=== PATIENT | male | born 1970 | race American Indian/Alaskan Native ===

== ENCOUNTER 2020-11-18 12:11 | Emergency (ER) | payer MEDICARE ==
[2020-11-18] MEDS ORDERED: SODIUM CHLORIDE 0.9% 1000 ML 1,000 ML IV ONE (14:15)
--- NOTE | 2020-11-18 14:16 | Emergency Department Report ---
<KAREN ESTRADA - Last Filed: 11/18/20 14:24> ED General Adult HPI - General Chief complaint: Seizure Stated complaint: SEIZURE Time Seen by Provider: 11/18/20 14:15 Source: patient, EMS Mode of arrival: Wheelchair Limitations: No Limitations - History of Present Illness Initial comments: Patient is a 50-year-old male with past medical history of HIV noncompliant with antiviral medication x1 month who presents to emergency department after experiencing a syncopal event versus generalized seizure prior to arrival emergency department. Patient states he was helping his friend move, abruptly lost consciousness and fell backwards, striking his head against the wall as he landed. Patient denies headache, denies tongue laceration, denies incontinence of feces or urine. Patient denies history of seizures, denies drug abuse. Patient states he does drink approximately 1 sixpack of alcohol per day, denies feeling like he needs a drink or withdrawal symptoms. Patient presents with fever, unaware fever, denies cough, denies sore throat, denies shortness of breath, denies rash, denies abdominal pain, denies nausea vomiting diarrhea, denies dysuria. - Related Data Previous Rx's Medication Instructions Recorded Last Taken Type Azithromycin [Zithromax TAB] 250 mg PO QDAY #4 tablet 11/18/20 Unknown Rx Multivitamin with Folic Acid [Cvs 400 mcg PO DAILY #30 tablet 11/18/20 Unknown Rx One Daily Essential Tablet] Thiamine [Vitamin B-1] 100 mg PO QDAY #30 tablet 11/18/20 Unknown Rx levETIRAcetam [Keppra TAB] 500 mg PO BID #60 tablet 11/18/20 Unknown Rx Allergies Allergy/AdvReac Type Severity Reaction Status Date / Time No Known Allergies Allergy Unverified 11/18/20 13:00 ED Review of Systems Comment: All other systems reviewed and negative ED Past Medical Hx - Past Medical History Previous Medical History?: Yes Additional medical history: HIV - Surgical History Past Surgical History?: No - Medications Home Medications: Home Medications Medication Instructions Recorded Confirmed Last Taken Type Azithromycin [Zithromax TAB] 250 mg PO QDAY #4 tablet 11/18/20 Unknown Rx Multivitamin with Folic Acid [Cvs 400 mcg PO DAILY #30 tablet 11/18/20 Unknown Rx One Daily Essential Tablet] Thiamine [Vitamin B-1] 100 mg PO QDAY #30 tablet 11/18/20 Unknown Rx levETIRAcetam [Keppra TAB] 500 mg PO BID #60 tablet 11/18/20 Unknown Rx ED Physical Exam - General Limitations: No Limitations General appearance: alert, in no apparent distress - Head Head exam: Present: atraumatic, normocephalic - Eye Eye exam: Present: normal appearance - ENT ENT exam: Present: mucous membranes moist - Neck Neck exam: Present: normal inspection - Respiratory Respiratory exam: Present: normal lung sounds bilaterally. Absent: respiratory distress - Cardiovascular Cardiovascular Exam: Present: regular rate, normal rhythm. Absent: systolic murmur, diastolic murmur, rubs, gallop - GI/Abdominal GI/Abdominal exam: Present: soft, normal bowel sounds - Rectal Rectal exam: Present: deferred - Extremities Exam Extremities exam: Present: normal inspection - Back Exam Back exam: Present: normal inspection - Neurological Exam Neurological exam: Present: alert, oriented X3 - Psychiatric Psychiatric exam: Present: normal affect, normal mood - Skin Skin exam: Present: warm, dry, intact, normal color. Absent: rash ED Course - Reevaluation(s) Reevaluation #1: 11/18/20 14:26 Patient initially treated with IV normal saline and Tylenol p.o. ED Disposition Clinical Impression: Loss of consciousness, Seizure, Alcohol abuse, Pulmonary infiltrates on CXR Disposition: - TO HOME OR SELFCARE Condition: Stable Instructions: Alcohol Use Disorder, Seizure, Adult, [id number], Syncope, [id number], Community-Acquired Pneumonia, Adult, [id number] Additional Instructions: Take the medication as prescribed. Follow-up with your doctor or doctor/clinic provided. Return if symptoms worsen as indicated by your discharge instructions. Prescriptions: Multivitamin with Folic Acid [Cvs One Daily Essential Tablet] 400 mcg PO DAILY #30 tablet levETIRAcetam [Keppra TAB] 500 mg PO BID #60 tablet Thiamine [Vitamin B-1] 100 mg PO QDAY #30 tablet Azithromycin [Zithromax TAB] 250 mg PO QDAY #4 tablet Referrals: [facility] [Provider Group] - 3-5 Days (primary care clinic ) [facility] [Outside] - 3-5 Days (help with alcohol abuse ) JANINE CASPER MD [Staff Physician] - 3-5 Days (chain saw operator ) TONI THOMPSON MD [Staff Physician] - 3-5 Days (neurologist) RODRICK EASLEY MD [Primary Care Provider] - 3-5 Days RADHA NUR MD [Staff Physician] - 3-5 Days (infectious disease doctor ) <JUSTYNA ALDRICH - Last Filed: 11/18/20 19:57> ED Review of Systems ROS: Stated complaint: SEIZURE Other details as noted in HPI ED Course Vital Signs 11/18/20 11/18/20 11/18/20 13:00 14:31 14:45 Temperature 100.3 F H Pulse Rate 100 H 72 88 Respiratory 16 19 17 Rate Blood Pressure 128/83 134/79 Blood Pressure 150/78 [Right] O2 Sat by Pulse 98 98 100 Oximetry 11/18/20 11/18/20 11/18/20 15:04 15:15 15:31 Temperature Pulse Rate 102 H 66 82 Respiratory 20 20 Rate Blood Pressure 134/79 127/82 127/82 Blood Pressure [Right] O2 Sat by Pulse 99 98 98 Oximetry 11/18/20 11/18/20 11/18/20 15:45 16:01 16:16 Temperature Pulse Rate 63 63 87 Respiratory 15 17 22 Rate Blood Pressure 117/79 117/79 128/83 Blood Pressure [Right] O2 Sat by Pulse 99 99 99 Oximetry 11/18/20 11/18/20 11/18/20 16:31 16:45 17:01 Temperature Pulse Rate 83 64 61 Respiratory 12 17 17 Rate Blood Pressure 117/79 136/81 136/81 Blood Pressure [Right] O2 Sat by Pulse 98 99 100 Oximetry 11/18/20 11/18/20 11/18/20 17:15 17:31 17:45 Temperature Pulse Rate 82 62 62 Respiratory 17 18 15 Rate Blood Pressure 128/89 128/89 121/82 Blood Pressure [Right] O2 Sat by Pulse 99 100 100 Oximetry - Reevaluation(s) Reevaluation #1: 11/18/20 16:50 Patient interviewed at the bedside after signout from Dr. Estrada. Patient suspects he had a seizure only because he was told that by EMS. Patient states he did injure his tongue and had urinary incontinence during episode but there are no signs of tongue laceration. He denies any pain currently other than aching pain to bilateral legs. He does have a history of daily alcohol use with alcohol withdrawal tremors/shaky feeling with abstinence however, he denies having those symptoms currently. Awaiting results from troponin and d-dimer as per sign out pt may be d/juarez if results unremarkable. Keppra empirically given and banana bag ordered. Patient's heart rate currently in the 60s without any signs of tremor on examination. ED Medical Decision Making - Lab Data Result diagrams: 11/18/20 14:24 11/18/20 14:24 Lab Results 11/18/20 11/18/20 11/18/20 Range/Units 14:24 14:24 14:24 WBC 4.4 L (4.5-11.0) K/mm3 RBC 4.26 (3.65-5.03) M/mm3 Hgb 12.8 (11.8-15.2) gm/dl Hct 38.6 (35.5-45.6) % MCV 91 (84-94) fl MCH 30 (28-32) pg MCHC 33 (32-34) % RDW 14.2 (13.2-15.2) % Plt Count 124 L (140-440) K/mm3 Lymph % (Auto) 8.0 L (13.4-35.0) % [place] % (Auto) 13.9 H (0.0-7.3) % Eos % (Auto) 0.0 (0.0-4.3) % Baso % (Auto) 0.2 (0.0-1.8) % Lymph # (Auto) 0.4 L (1.2-5.4) K/mm3 [place] # (Auto) 0.6 (0.0-0.8) K/mm3 Eos # (Auto) 0.0 (0.0-0.4) K/mm3 Baso # (Auto) 0.0 (0.0-0.1) K/mm3 Seg Neutrophils % 77.9 H (40.0-70.0) % Seg Neutrophils # 3.4 (1.8-7.7) K/mm3 D-Dimer (0-234) ng/mlDDU Sodium 134 L (137-145) mmol/L Potassium 3.6 (3.6-5.0) mmol/L Chloride 99.6 (98-107) mmol/L Carbon Dioxide 24 (22-30) mmol/L Anion Gap 14 mmol/L BUN 8 L (9-20) mg/dL Creatinine 0.7 L (0.8-1.3) mg/dL Estimated GFR > 60 ml/min BUN/Creatinine Ratio 11 % Glucose 101 H (75-100) mg/dL Calcium 9.0 (8.4-10.2) mg/dL Magnesium 1.70 (1.7-2.3) mg/dL Total Bilirubin 0.60 (0.1-1.2) mg/dL AST 114 H (5-40) units/L ALT 51 (7-56) units/L Alkaline Phosphatase 82 (35-129) units/L Troponin T < 0.010 (0.00-0.029) ng/mL Total Protein 8.2 (6.3-8.2) g/dL Albumin 3.4 L (3.9-5) g/dL Albumin/Globulin Ratio 0.7 % Urine Color (Yellow) Urine Turbidity (Clear) Urine pH (5.0-7.0) Ur Specific [place] (1.003-1.030) Urine Protein (Negative) mg/dL Urine Glucose (UA) (Negative) mg/dL Urine Ketones (Negative) mg/dL Urine Blood (Negative) Urine Nitrite (Negative) Urine Bilirubin (Negative) Urine Urobilinogen (<2.0) mg/dL Ur Leukocyte Esterase (Negative) Urine WBC (Auto) (0.0-6.0) /HPF Urine RBC (Auto) (0.0-6.0) /HPF U Epithel Cells (Auto) (0-13.0) /HPF Urine Mucus /HPF Urine Opiates Screen Urine Methadone Screen Ur Barbiturates Screen Ur Phencyclidine Scrn Ur Amphetamines Screen U Benzodiazepines Scrn Urine Cocaine Screen U Marijuana (THC) Screen Drugs of Abuse Note Plasma/Serum Alcohol < 0.01 (0-0.07) % 11/18/20 11/18/20 11/18/20 Range/Units 16:30 16:30 16:36 WBC (4.5-11.0) K/mm3 RBC (3.65-5.03) M/mm3 Hgb (11.8-15.2) gm/dl Hct (35.5-45.6) % MCV (84-94) fl MCH (28-32) pg MCHC (32-34) % RDW (13.2-15.2) % Plt Count (140-440) K/mm3 Lymph % (Auto) (13.4-35.0) % [place] % (Auto) (0.0-7.3) % Eos % (Auto) (0.0-4.3) % Baso % (Auto) (0.0-1.8) % Lymph # (Auto) (1.2-5.4) K/mm3 [place] # (Auto) (0.0-0.8) K/mm3 Eos # (Auto) (0.0-0.4) K/mm3 Baso # (Auto) (0.0-0.1) K/mm3 Seg Neutrophils % (40.0-70.0) % Seg Neutrophils # (1.8-7.7) K/mm3 D-Dimer 438.71 H (0-234) ng/mlDDU Sodium (137-145) mmol/L Potassium (3.6-5.0) mmol/L Chloride (98-107) mmol/L Carbon Dioxide (22-30) mmol/L Anion Gap mmol/L BUN (9-20) mg/dL Creatinine (0.8-1.3) mg/dL Estimated GFR ml/min BUN/Creatinine Ratio % Glucose (75-100) mg/dL Calcium (8.4-10.2) mg/dL Magnesium (1.7-2.3) mg/dL Total Bilirubin (0.1-1.2) mg/dL AST (5-40) units/L ALT (7-56) units/L Alkaline Phosphatase (35-129) units/L Troponin T (0.00-0.029) ng/mL Total Protein (6.3-8.2) g/dL Albumin (3.9-5) g/dL Albumin/Globulin Ratio % Urine Color Yellow (Yellow) Urine Turbidity Slightly-cloudy (Clear) Urine pH 6.0 (5.0-7.0) Ur Specific [place] 1.020 (1.003-1.030) Urine Protein 100 mg/dl (Negative) mg/dL Urine Glucose (UA) Neg (Negative) mg/dL Urine Ketones Neg (Negative) mg/dL Urine Blood Sm (Negative) Urine Nitrite Neg (Negative) Urine Bilirubin Neg (Negative) Urine Urobilinogen 4.0 (<2.0) mg/dL Ur Leukocyte Esterase Neg (Negative) Urine WBC (Auto) 3.0 (0.0-6.0) /HPF Urine RBC (Auto) 2.0 (0.0-6.0) /HPF U Epithel Cells (Auto) 1.0 (0-13.0) /HPF Urine Mucus 3+ /HPF Urine Opiates Screen Negative Urine Methadone Screen Negative Ur Barbiturates Screen Negative Ur Phencyclidine Scrn Negative Ur Amphetamines Screen Negative U Benzodiazepines Scrn Negative Urine Cocaine Screen Negative U Marijuana (THC) Screen Negative Drugs of Abuse Note Disclamer Plasma/Serum Alcohol (0-0.07) % 11/18/20 Range/Units 16:36 WBC (4.5-11.0) K/mm3 RBC (3.65-5.03) M/mm3 Hgb (11.8-15.2) gm/dl Hct (35.5-45.6) % MCV (84-94) fl MCH (28-32) pg MCHC (32-34) % RDW (13.2-15.2) % Plt Count (140-440) K/mm3 Lymph % (Auto) (13.4-35.0) % [place] % (Auto) (0.0-7.3) % Eos % (Auto) (0.0-4.3) % Baso % (Auto) (0.0-1.8) % Lymph # (Auto) (1.2-5.4) K/mm3 [place] # (Auto) (0.0-0.8) K/mm3 Eos # (Auto) (0.0-0.4) K/mm3 Baso # (Auto) (0.0-0.1) K/mm3 Seg Neutrophils % (40.0-70.0) % Seg Neutrophils # (1.8-7.7) K/mm3 D-Dimer (0-234) ng/mlDDU Sodium (137-145) mmol/L Potassium (3.6-5.0) mmol/L Chloride (98-107) mmol/L Carbon Dioxide (22-30) mmol/L Anion Gap mmol/L BUN (9-20) mg/dL Creatinine (0.8-1.3) mg/dL Estimated GFR ml/min BUN/Creatinine Ratio % Glucose (75-100) mg/dL Calcium (8.4-10.2) mg/dL Magnesium (1.7-2.3) mg/dL Total Bilirubin (0.1-1.2) mg/dL AST (5-40) units/L ALT (7-56) units/L Alkaline Phosphatase (35-129) units/L Troponin T < 0.010 (0.00-0.029) ng/mL Total Protein (6.3-8.2) g/dL Albumin (3.9-5) g/dL Albumin/Globulin Ratio % Urine Color (Yellow) Urine Turbidity (Clear) Urine pH (5.0-7.0) Ur Specific [place] (1.003-1.030) Urine Protein (Negative) mg/dL Urine Glucose (UA) (Negative) mg/dL Urine Ketones (Negative) mg/dL Urine Blood (Negative) Urine Nitrite (Negative) Urine Bilirubin (Negative) Urine Urobilinogen (<2.0) mg/dL Ur Leukocyte Esterase (Negative) Urine WBC (Auto) (0.0-6.0) /HPF Urine RBC (Auto) (0.0-6.0) /HPF U Epithel Cells (Auto) (0-13.0) /HPF Urine Mucus /HPF Urine Opiates Screen Urine Methadone Screen Ur Barbiturates Screen Ur Phencyclidine Scrn Ur Amphetamines Screen U Benzodiazepines Scrn Urine Cocaine Screen U Marijuana (THC) Screen Drugs of Abuse Note Plasma/Serum Alcohol (0-0.07) % - Radiology Data Radiology results: report reviewed CTA CHEST WITH CONTRAST INDICATION / CLINICAL INFORMATION: Syncope versus seizure. TECHNIQUE: Axial CT images were obtained through the chest after injection of 100 cc of Omnipaque 350 IV contrast. 3 plane MIP and/or 3D reconstructions were produced. All CT scans at this location are performed using CT dose reduction for ALARA by means of automated exposure control. COMPARISON: None available. FINDINGS: PULMONARY ARTERIES: No pulmonary emboli. THORACIC AORTA: No significant abnormality. HEART: No significant abnormality. CORONARY ARTERY CALCIFICATION: None. MEDIASTINUM / CAROL: No significant abnormality. PLEURA: No pleural effusion. No pneumothorax. LUNGS: There are some minimal groundglass densities in the lungs bilaterally. This could represent minimal edema, atelectasis or an atypical pneumonia. ADDITIONAL FINDINGS: None. UPPER ABDOMEN: No acute findings. SKELETAL STRUCTURES: No significant osseous abnormality. IMPRESSION: 1. No CT evidence for pulmonary embolism. 2. There are minimal scattered groundglass densities in the lungs bilaterally. This could represent minimal edema, atelectasis or atypical pneumonia. ct head: naf xr chest: naf b/l leg doppler: no DVT - Medical Decision Making 50-year-old male presents the hospital syncope versus seizure with incidental finding of elevated D-dimer. CT angiogram negative for pulmonary embolism and bilateral leg Dopplers negative for DVT. Incidental finding of groundglass opacities in lung with differential as mentioned in report. Patient will be covered with azithromycin. No signs of hypoxia, infectious symptoms, cough, or shortness of breath. Patient is known to be HIV positive with noncompliant to his medication. Outpatient follow infectious disease encouraged. Outpatient follow-up with PMD, neurology and cardiology also encouraged due to syncope versus seizure episode today. Patient was treated with normal saline, banana b ag, and IV Keppra. Keppra will be prescribed x1 month until patient can follow- up for further treatment and recommendations. Patient also known daily alcohol user without signs of alcohol withdrawal tremors or DTs during ED stay. Outpatient treatment will be encouraged Critical Care Time: No Critical care attestation.: If time is entered above; I have spent that time in minutes in the direct care of this critically ill patient, excluding procedure time. ED Disposition Is pt being admited?: No Does the pt Need Aspirin: No Time of Disposition: 19:57
[2020-11-18] MEDS ORDERED: ACETAMINOPHEN 325 MG TAB PO ONE (14:24)
[2020-11-18 14:40] LABS: Basophils % (Auto) 0.2 % (0.0-1.8); Hematocrit 38.6 % (35.5-45.6); Hemoglobin 12.8 gm/dl (11.8-15.2); Lymphocytes # (Auto) 0.4 K/mm3 (1.2-5.4); Mean Corpuscular HGB Conc 33 % (32-34); Mean Corpuscular Volume 91 fl (84-94); Monocytes # (Auto) 0.6 K/mm3 (0.0-0.8); Monocytes % (Auto) 13.9 % (0.0-7.3); Platelet Count 124 K/mm3 (140-440); Red Blood Count 4.26 M/mm3 (3.65-5.03); Red Cell Distribution Width 14.2 % (13.2-15.2)
--- NOTE | 2020-11-18 14:57 | XRay Report ---
. XR chest 1V ap INDICATION / CLINICAL INFORMATION: weakness COMPARISON: None available. FINDINGS: SUPPORT DEVICES: None. HEART / MEDIASTINUM: No significant abnormality. LUNGS / PLEURA: Lungs are clear. Costophrenic sulci are sharp. No pneumothorax. ADDITIONAL FINDINGS: No significant additional findings. IMPRESSION: 1. No acute findings. Signer Name: Antoine Graves MD Signed: 11/18/2020 2:53 PM Workstation Name: [id number]
[2020-11-18 15:02] LABS: Alanine Aminotransferase 51 units/L (7-56); Albumin 3.4 g/dL (3.9-5); Blood Urea Nitrogen 8 mg/dL (9-20); Hemolysis Index 14
[2020-11-18 15:06] LABS: BUN/Creatinine Ratio 11
--- NOTE | 2020-11-18 15:10 | Cat Scan Report ---
CT HEAD WITHOUT CONTRAST INDICATION / CLINICAL INFORMATION: new onset seizure. TECHNIQUE: Axial imaging performed from the skull apex through the skull base without the use of cont rast. Sagittal and coronal reformatted images. All CT scans at this location are performed using CT dose reduction for ALARA by means of automated exposure control. COMPARISON: None available. FINDINGS: CEREBRAL PARENCHYMA: No significant abnormality. No acute territorial infarct. HEMORRHAGE: None. EXTRA-AXIAL SPACES: Normal in size and morphology for the patient's age. VENTRICULAR SYSTEM: Normal in size and morphology for the patient's age. MIDLINE SHIFT OR HERNIATION: None. CEREBELLUM / BRAINSTEM: No significant abnormality. CALVARIUM: No significant abnormality. ORBITS: Normal as visualized. PARANASAL SINUSES / MASTOID AIR CELLS: Normal as visualized. SOFT TISSUES of HEAD: No significant abnormality. ADDITIONAL FINDINGS: None. IMPRESSION: No acute intracranial abnormality. Signer Name: Grant Ruth Jr, MD Signed: 11/18/2020 3:05 PM Workstation Name: [id number]
[2020-11-18] MEDS ORDERED: levETIRAcetam 1000 MG/NS 0.75% 1,000 MG/100 ML BAG IV ONE (16:53)
[2020-11-18 17:04] LABS: Amphetamine Screen,Urine Negative; Benzodiazepines Screen,Urine Negative; Cannabinoid Screen,Urine Negative; Cocaine Screen,Urine Negative; Methadone Screen,Urine Negative; Opiate Screen,Urine Negative
[2020-11-18] MEDS ORDERED: MULTIVITAMINS ,THERAPEUTIC TAB PO ONE (17:07)
[2020-11-18 17:25] LABS: Bilirubin,Urine NEG (Negative); Blood,Urine SM (Negative); Color,Urine Yellow (Yellow); Mucus,Urine 3+ /HPF
[2020-11-18] MEDS ORDERED: THIAMINE 100 MG, FOLIC ACID 1 MG in SODIUM CHLORIDE 0.9% 1000 ML 1,000 ML IV ONE (18:00)
--- NOTE | 2020-11-18 18:35 | Cat Scan Report ---
CTA CHEST WITH CONTRAST INDICATION / CLINICAL INFORMATION: Syncope versus seizure. TECHNIQUE: Axial CT images were obtained through the chest after injection of 100 cc of Omnipaque 350 IV contrast. 3 plane MIP and/or 3D reconstructions were produced. All CT scans at this location are performed using CT dose reduction for ALARA by means of automated exposure control. COMPARISON: None available. FINDINGS: PULMONARY ARTERIES: No pulmonary emboli. THORACIC AORTA: No significant abnormality. HEART: No significant abnormality. CORONARY ARTERY CALCIFICATION: None. MEDIASTINUM / CAROL: No significant abnormality. PLEURA: No pleural effusion. No pneumothorax. LUNGS: There are some minimal groundglass densities in the lungs bilaterally. This could represent mi nimal edema, atelectasis or an atypical pneumonia. ADDITIONAL FINDINGS: None. UPPER ABDOMEN: No acute findings. SKELETAL STRUCTURES: No significant osseous abnormality. IMPRESSION: 1. No CT evidence for pulmonary embolism. 2. There are minimal scattered groundglass densities in the lungs bilaterally. This could represent m inimal edema, atelectasis or atypical pneumonia. Signer Name: Vinnie Cruz MD Signed: 11/18/2020 6:31 PM Workstation Name: [id number]
[2020-11-18] MEDS ORDERED: AZITHROMYCIN 250 MG TAB PO ONE (18:52)
--- NOTE | 2020-11-18 19:46 | Vascular Lab Report ---
DUPLEX DOPPLER LOWER EXTREMITY VEINS, BILATERAL INDICATION: b/l leg pain, elevated ddimer. TECHNIQUE: Duplex doppler imaging was performed through the veins of both lower extremities using venous cristian emerson and other maneuvers. COMPARISON: No relevant prior imaging study available. FINDINGS: Right Common femoral vein: Negative. Right Superficial femoral vein: Negative. Right Popliteal vein: Negative. Right Calf veins: Negative. Left Common femoral vein: Negative. Left Superficial femoral vein: Negative. Left Popliteal vein: Negative. Left Calf veins: Negative. Additional findings: None.. IMPRESSION: 1. No sonographic evidence for DVT in either lower extremity. Signer Name: Severiano Diaz MD Signed: 11/18/2020 7:42 PM Workstation Name: [id number]
[2020-11-18 22:08] VITALS: BP 119/76
== END 2020-11-18 20:25 | disposition home or self-care (01) ==
LOC: ED 12:11
DX: G40.909 Epilepsy, unspecified, not intractable, without status epilepticus (principal); R55 Syncope and collapse; F10.10 Alcohol abuse, uncomplicated; R91.8 Other nonspecific abnormal finding of lung field
CPT/HCPCS: 36415; 70450; 71045; 71275; 80053; 80307; 81001; 83735; 84484; 85025; 85379; 93005; 93970; 96361; 96365; 96366; 96368; 99285; J1953; J3411; J7030; Q9967; 80320; G0480